=== PATIENT | female | born 1950 | race Caucasian/White ===

== ENCOUNTER 2020-05-30 06:25 | Day surgery (SDC) | payer MEDICARE, OTHER ==
[~2020-05-30] VITALS: Ht 175.3 cm; Wt 86.0 kg
[~2020-05-30 06:25] MED LIST: ALPRAZOLAM ER0.5 MG PO; CALCIUM500 MG PO; IRON325 M1 PO; MOBIC7.5 MG PO; MULTI VITAMIN1 EACH PO; NEURONTIN100 MG PO; PRILOSEC OTC20 MG PO; VEGETARIAN GLU750 MG PO; VITAMIN B-121000 MC3 PO; VITAMIN C1000 MG PO; VITAMIN D325 MC2 PO
--- NOTE | 2020-05-30 08:04 | NUR ---
05/30/20 0804 Lenore Busch 0800 PATIENT ARRIVES TO PACU SLEEPING, OPENS EYES WITH VERBAL STIMULI, BACK TO SLEEP WHEN NOT STIMULATED. RESP EVEN AND UNLABORED, ROOM AIR SATS >90%.
--- NOTE | 2020-05-30 10:05 | NUR ---
PT ALERT, ORIENTED AND STILL FEELING THE EFFECTS OF PREP FROM LAST NIGHT. NAUSEA IS STILL AN ISSUE. HAD BRIEF VISIT, OR STAFF IN TO TAKE PT. GAVE BLESSING, WILL FOLLOW NEEDED
--- NOTE | 2020-05-31 09:00 | OR ---
[facility] [address], [place] [address] Signed DATE OF OPERATION: 05/30/2020 SURGEON: Mark Echeverria MD PREOPERATIVE DIAGNOSES: 1. Screening. 2. Hyperplastic colonic polyps in 2005 (age 54). 3. Diverticulosis. POSTOPERATIVE DIAGNOSIS: Minimal to moderate sigmoid diverticulosis. PROCEDURE: Colonoscopy without biopsy. ESTIMATED BLOOD LOSS: None. INDICATIONS: Jeanne is a 69-year-old female asked to see me for a followup colonoscopy. While living in [place], [place], she underwent a colonoscopy in 2005. She was age 54 at that time. She had a hyperplastic polyp removed and also was noted to have some diverticulosis. She has no lower GI complaints. There is no family history of colon cancer or polyps. She has had other more pressing medical issues that took precedence over the colonoscopy. She now presents for her followup colonoscopy. In the office, I gave her a pamphlet on colonoscopy. She understands the nature of the test along with the risks including, but not limited to gas bloating, crampy abdominal pain, bleeding, perforation requiring surgery, and missed diagnosis. She also understands the need for IV conscious sedation. She had expressed understanding and wished to proceed. PROCEDURE NOTE: Jeanne was taken into our endoscopy suite and placed in the left lateral decubitus position. She was given IV sedation with 6 mg of Versed and 150 mcg of fentanyl. She was given Zofran 4 mg IV preoperatively along with her Ancef, but digital rectal exam had been performed and this was unremarkable. The adult colonoscope was introduced and advanced under direct visualization of camera. She has a somewhat angulated sigmoid colon. Consequently, it took some extra sedation and abdominal compression in order to advance the scope through the sigmoid colon. After this, the scope passed quite nicely into the cecum itself. Her prep was quite excellent. The scope was slowly withdrawn. We could easily see the appendiceal orifice and the ileocecal valve. We found no polyps Electronically Signed By: MARK ECHEVERRIA MD 05/31/20 0900 PATIENT NAME: JEANNE PHIPPS OPERATIVE REPORT DATE OF : 46 REPORT #: [id number] PHYSICIAN: AMRK ECHEVERRIA MD PCP: BELLA RAPHAEL MD REPORT IS CONFIDENTIAL AND NOT TO BE RELEASED WITHOUT AUTHORIZATION [address] [address] Signed on this occasion. Again, she has diverticulosis in the sigmoid colon. They were minimal to moderate in size, minimal to moderate in number, and scattered about. The rectum itself was unremarkable. Upon retroflexion of the scope, there was no additional pathology noted above the anal canal. After this, the gas was suctioned out and the colonoscope removed. Jeanne tolerated the procedure quite well. RECOMMENDATIONS: Jeanne can follow up in 10 years for a repeat colonoscopy so long as her health holds up. Mark Echeverria MD ALB/AMELIAL /[id number] cc: MD Bella Corona MD Copies: MARK ECHEVERRIA MD ~ Electronically Signed By: MARK ECHEVERRIA MD 05/31/20 0900 PATIENT NAME: JEANNE PHIPPS OPERATIVE REPORT DATE OF : 46 REPORT #: [id number] PHYSICIAN: MARK ECHEVERRIA MD PCP: BELLA RAPHAEL MD REPORT IS CONFIDENTIAL AND NOT TO BE RELEASED WITHOUT AUTHORIZATION
== END 2020-05-30 08:30 | disposition home or self-care (01) ==
LOC: DS 06:25 → OPS 06:25 → DS 06:45 → OPS 06:45
PROVIDERS: ATTEND Colon & Rectal Surgery
PROC: 0DJD8ZZ Inspection of Lower Intestinal Tract, Via Natural or Artificial Opening Endoscopic (ICD-10-PCS; principal; 2020-05-30 06:45)
DX: K57.30 Diverticulosis of large intestine without perforation or abscess without bleeding (principal); I10 Essential (primary) hypertension; F17.210 Nicotine dependence, cigarettes, uncomplicated; Z91.040 Latex allergy status; Z88.8 Allergy status to other drugs, medicaments and biological substances; Z91.048 Other nonmedicinal substance allergy status; Z86.010 Personal history of colon polyps
CPT/HCPCS: 99153; G0500; J0690; J2250; J2405; J3010; J7121

== ENCOUNTER 2020-06-30 17:38 | Emergency (ER) | payer MEDICARE, OTHER ==
[~2020-06-30] VITALS: Ht 175.3 cm; Wt 85.7 kg
[2020-06-30] MEDS ORDERED: MIRTAZAPINE7.5 MG PO (20:10)
[2020-06-30] MEDS ORDERED: LISINOPRIL5 MG PO (20:10)
[2020-06-30] MEDS ORDERED: SENNA8.6 MG PO (20:10)
[2020-06-30] MEDS ORDERED: MAPAP500 MG PO (23:26)
== END 2020-06-30 23:38 | disposition home or self-care (01) ==
LOC: ED 17:38
DX: R10.32 Left lower quadrant pain (principal); R10.31 Right lower quadrant pain; R10.11 Right upper quadrant pain; R10.12 Left upper quadrant pain; I10 Essential (primary) hypertension; F17.200 Nicotine dependence, unspecified, uncomplicated; Z91.040 Latex allergy status; Z88.5 Allergy status to narcotic agent; Z88.8 Allergy status to other drugs, medicaments and biological substances; Z79.899 Other long term (current) drug therapy; W19.XXXA Unspecified fall, initial encounter
CPT/HCPCS: 74177; 80053; 81001; 85025; 96375; 99284-25; J1200; J2270; J2405; J7121

== ENCOUNTER 2020-07-03 19:50 | Emergency (ER) | payer MEDICARE, OTHER ==
[~2020-07-03] VITALS: Ht 177.8 cm; Wt 87.0 kg
[~2020-07-03 19:50] MED LIST changes: +LISINOPRIL5 MG PO; +MAPAP500 MG PO; +MIRTAZAPINE7.5 MG PO; +SENNA8.6 MG PO
--- OUTSIDE RECORDS SUMMARY | 2020-07-03 19:54 | XMS ---
PreManage Notification: JEANNE PHIPPS Security Gate Tender Events No recent Security Events currently on file CRITERIA MET - [facility] - 2 Visits in 30 Days CARE PROVIDERS There are no care providers on record at this time. Sherly has no Care Guidelines for this patient. [facility]: Visits indicate total known visits. ED/C VISIT TRACKING (12 MO.) [facility] COMPLAINT: - CONSTIPATION, LOWER BACK PAIN, NAUSEA 06/30/2020 17:[address] [facility] [place] TYPE: Emergency COMPLAINT: - BACK PAIN/ FALL DIAGNOSES: - Essential (primary) hypertension - Allergy status to narcotic agent - Allergy status to other drugs, medicaments and biological substances - Unspecified fall, initial encounter - Nicotine dependence, unspecified, uncomplicated - Right upper quadrant pain - Other intermediate card tender (current) drug therapy - Latex allergy status - Right lower quadrant pain - Left upper quadrant pain - Left lower quadrant pain - Low back pain INPATIENT VISIT TRACKING (12 MO.) No inpatient visits to display in this time frame [email or web address]
[2020-07-03] MEDS ORDERED: ACETAMINOPHEN500 MG PO (20:14)
[2020-07-03] MEDS ORDERED: DIAZEPAM5 MG PO (22:38)
[2020-07-03] MEDS ORDERED: MAPAP500 MG PO (22:38)
[2020-07-03] MEDS ORDERED: LIDODERM1 EACH TOP (22:38)
== END 2020-07-03 22:54 | disposition home or self-care (01) ==
LOC: ED 19:50
DX: M62.830 Muscle spasm of back (principal); K59.00 Constipation, unspecified; F17.200 Nicotine dependence, unspecified, uncomplicated; Z88.5 Allergy status to narcotic agent; Z88.8 Allergy status to other drugs, medicaments and biological substances; Z91.040 Latex allergy status; Z79.899 Other long term (current) drug therapy
CPT/HCPCS: 80053; 81001; 83735; 85025; 99283; A9270

== ENCOUNTER 2022-03-25 07:05 | Emergency (ER) | payer MEDICARE, OTHER ==
[~2022-03-25] VITALS: Ht 177.8 cm; Wt 87.0 kg
[~2022-03-25 07:05] MED LIST changes: +ACETAMINOPHEN500 MG PO; +DIAZEPAM5 MG PO; +LIDODERM1 EACH TOP
--- OUTSIDE RECORDS SUMMARY | 2022-03-25 07:08 | XMS ---
PreManage Notification: JEANNE PHIPPS Security [facility] Clerk Events No recent Security Events currently on file CRITERIA MET - [facility] CARE PROVIDERS BEATRIZ SINGER [facility] Current PHONE: Unknown CORI RAPHAEL [facility] 07/04/2020-[facility]: Unknown Sherly has no Care Guidelines for this patient. Care History Medical/Surgical 07/04/2020 [facility] - Patient is currently established with [facility]. If patient is seen in the ED during business hours. Please contact [facility] at [facility]. Care Recommendation: If this patient has had 5 or more Emergency Department visits in the last 12 months.\T\nbsp; Patient will require education on the scope and purpose of the ED as an acute care provider not a Primary Care Provider and should not be utilized for chronic conditions.\T\nbsp; These are guidelines and the provider should exercise clinical judgment when providing care. E.D. VISIT COUNT (12 MO.) 1 [facility] TOTAL 1 NOTE: Visits indicate total known visits. ED/UCC VISIT TRACKING (12 MO.) 03/25/2022 07:06 [facility] [place] TYPE: Emergency COMPLAINT: - COLD/FLU SYMPTOMS, FEVER, COUGH, CONGESTION INPATIENT VISIT TRACKING (12 MO.) No inpatient visits to display in this time frame [email or web address]
[2022-03-25] MEDS ORDERED: VENTOLIN HFA18 GM INH (08:25)
[2022-03-25] MEDS ORDERED: PREDNISONE20 MG PO (08:25)
== END 2022-03-25 08:49 | disposition home or self-care (01) ==
LOC: ED 07:05
DX: J10.1 Influenza due to other identified influenza virus with other respiratory manifestations (principal); I10 Essential (primary) hypertension; F17.200 Nicotine dependence, unspecified, uncomplicated; Z20.822 Contact with and (suspected) exposure to COVID-19; Z91.040 Latex allergy status; Z88.5 Allergy status to narcotic agent; Z88.8 Allergy status to other drugs, medicaments and biological substances; Z79.899 Other long term (current) drug therapy
CPT/HCPCS: 71045; 87502; 94640; 99283-25; 99406; U0003